=== PATIENT | male | born 1980 | race Caucasian/White ===

== ENCOUNTER 2020-12-10 14:33 | Outpatient (CLI) | payer BC ==
--- NOTE | 2020-12-10 15:42 | XRAY Report ---
PROCEDURE: Knee 2 View LT INDICATIONS: LT KNEE PAIN TECHNIQUE: 2 views of the left knee(s) were acquired. COMPARISON: None. FINDINGS: Bones: No fractures or dislocations. No suspicious bony lesions. Soft tissues: No joint effusion. No suspicious soft tissue calcifications. IMPRESSION: No evidence acute bony abnormality of the left knee. Comment: If patient has continued significant symptomatology, consider left knee MRI. Reviewed by: Glenn Vargas MD on 12/10/2020 3:41 PM PST Approved by: Glenn Vargas MD on 12/10/2020 3:41 PM PST Station ID: [id number]
== END 2020-12-10 14:34 | disposition home or self-care (01) ==
LOC: DI.N 14:33
PROVIDERS: ATTEND Registered Nurse
DX: M25.562 Pain in left knee (principal)

== ENCOUNTER 2021-01-04 15:04 | Outpatient (CLI) | payer BC | END 2021-01-04 15:05 | disposition home or self-care (01) | LOC: LAB 15:04 | PROVIDERS: ATTEND Registered Nurse | DX: Z00.00 Encounter for general adult medical examination without abnormal findings (principal) | CPT/HCPCS: 36415; 84153 ==